=== PATIENT | female | born 1990 | race Caucasian/White ===

== ENCOUNTER 2017-07-21 13:45 | Emergency (ER) | payer BC ==
[2017-07-21 16:03] LABS: ABS Basophils 0.1 10^3/ul (0-0.2); ABS Eosinophils 0 10^3/ul (0-0.6); ABS Lymphocytes 1.5 10^3/ul (1.0-4.8); ABS Monocytes 0.3 10^3/ul (0-0.8); ABS Neutrophils 8.8 10^3/ul (1.5-7.7); ABS Nucleated RBC 0 10^3/ul; Eosinophil % 0 % (0-6); Hematocrit 35 % (35-47); Hemoglobin 11.5 g/dl (12.0-16.0); Lymphocyte % 13.9 % (25-47); Mean Corpuscular HGB Conc 33 g/dl (31-36); Mean Corpuscular Hemoglobin 26 pg (27-31); Mean Corpuscular Volume 81 fL (80-97); Mean Platelet Volume 9 um3 (7.4-10.4); Nucleated Red Blood Cells % 0; Platelet Count 267 10^3/ul (150-450); Red Blood Count 4.38 10^6/ul (4.0-5.4); Red Cell Distribution Width 16 % (10.5-15); White Blood Count 10.7 10^3/ul (3.5-10.8)
[2017-07-21 16:18] LABS: EGFR Non-African American 109.1 (>60)
[2017-07-21] MEDS ORDERED: Ketorolac INJ* 60 MG/2 ML VIAL IM ONE (16:36)
--- NOTE | 2017-07-21 18:36 | RAD ---
INDICATION: Right adnexal pain. COMPARISON: There are no prior studies available for comparison. TECHNIQUE: Multiple real-time transvaginal images of the pelvis were obtained. FINDINGS: The uterus is normal in size, shape and echogenicity. The uterus measured 8.7 x 4.6 x 5.2 cm. The endometrial echo is slightly thickened measuring 1.7 cm in thickness. There is an IUD present which is abnormally low in position centered in the endocervical canal. The right ovary measured 5.4 x 2.7 x 3.6 cm. The left ovary measured 3.4 x 1.5 x 3.1 cm. There is vascular flow within both ovaries. There is a complex right ovarian cyst measuring 1.9 x 1.3 x 2.1 cm possibly representing an involuting follicular cyst. There is a complex structure adjacent to the right ovary measuring 3.4 x 1.9 cm in size possibly representing a prominent fallopian tube less likely a mass. There is a small a moderate amount of free intraperineal fluid. The results of this exam were called to the referring clinician. IMPRESSION: 1. COMPLEX STRUCTURE ADJACENT TO THE RIGHT OVARY POSSIBLY REPRESENTING A PROMINENT FALLOPIAN TUBE LESS LIKELY A MASS OR ECTOPIC . RECOMMEND CORRELATION WITH A TEST. 2. IUD ABNORMALLY LOW IN POSITION. 3. 2.1 CM COMPLEX RIGHT OVARIAN CYST SUGGESTIVE OF AN INVOLUTING FOLLICULAR CYST. 4. SMALL TO MODERATE AMOUNT OF FREE INTRAPERITONEAL FLUID.
--- NOTE | 2017-07-21 18:41 | RAD ---
INDICATION: Right lower quadrant pain. COMPARISON: There are no prior studies available for comparison. TECHNIQUE: Multiple real-time images of the right lower quadrant were obtained using a graded compression technique. FINDINGS: No free intraperitoneal fluid or localized fluid collections are seen. The appendix was not visualized limiting the study. There are mildly prominent mesenteric lymph nodes in the right lower quadrant. The largest measures 2.1 x 0.5 x 0.9 cm IMPRESSION: 1. THE APPENDIX WAS NOT VISUALIZED LIMITING THE STUDY, CONSIDER A CT OF THE ABDOMEN AND PELVIS WITH INTRAVENOUS AND ORAL CONTRAST FOR FURTHER EVALUATION. 2. MILDLY PROMINENT MESENTERIC LYMPH NODES RAISING THE POSSIBILITY OF MESENTERIC LYMPHADENITIS.
[2017-07-21 20:25] VITALS: BP 0/0
--- NOTE | 2017-07-22 11:26 | ED ---
Gerald Tan Jennifer, scribed for Noel Membreno MD on 07/21/17 at 1637 . Abdominal Pain/Female - HPI Summary HPI Summary: The patient is a 27 year old female who presents to the ED with pain in the right lower abdomen when she woke up this morning. The patient describes that the pain radiates down her right leg and up her side and back when she sits down. It sometimes radiates to her left abdomen, but its mostly concentrated to the right side. Movement aggravates the pain. The patient describes that she ate a little food this morning and vomited a few hours later. Her abdominal pain became worse throughout the day, but she denies nausea now. She adds that began taking a proton pump inhibitor and iron supplements recently. Her last menstrual period was one month ago. - History of Current Complaint Chief Complaint: EDAbdPain Stated Complaint: ABD PAIN Time Seen by Provider: 07/21/17 16:10 Hx Obtained From: Patient Onset/Duration: Sudden Onset, Lasting Hours - Began this morning, Still Present Timing: Constant Severity Initially: Moderate Severity Currently: Moderate Pain Intensity: 6 Pain Scale Used: 0-10 Numeric Location: Discrete At: RLQ Radiates: Yes Radiates to: Back, Other - Right leg Aggravating Factor(s): Movement Alleviating Factor(s): Nothing Associated Signs and Symptoms: Positive: Other: - Vomiting. Negative: Nausea Allergies/Adverse Reactions: Allergies Allergy/AdvReac Type Severity Reaction Status Date / Time MS Penicillins [PCN] Allergy Rash Verified 07/21/17 14:21 PMH/Surg Hx/FS Hx/Imm Hx Endocrine/Hematology History: Denies: Hx Diabetes Cardiovascular History: Denies: Hx Hypertension Infectious Disease History: No Infectious Disease History: Denies: Traveled Outside the [place] in Last 30 Days - Family History Known Family History: Negative: Hypertension, Diabetes - Social History Smoking Status (MU): Never Smoked Tobacco Review of Systems Negative: Cough Positive: Abdominal Pain, Vomiting. Negative: Nausea All Other Systems Reviewed And Are Negative: Yes Physical Exam - Summary Physical Exam Summary: Appearance: The patient is well-nourished in no acute distress and in no acute pain. Skin: The skin is warm and dry and skin color reflects adequate perfusion. HEENT: ~The head is normocephalic and atraumatic. The pupils are equal and reactive. The conjunctivae are clear and without drainage. ~Nares are patent and without drainage. ~Mouth reveals moist mucous membranes and the throat is without erythema and exudate. ~The external ears are intact. The ear canals are patent and without drainage. The tympanic membranes are intact. Neck: the neck is supple with full range of motion and non-tender. There are no carotid bruits. ~There is no neck vein distension. Respiratory: Chest is non-tender. ~Lungs are clear to auscultation and breath sounds are symmetrical and equal. Cardiovascular: Heart is regular rate and rhythm. ~There is no murmur or rub auscultated. ~~There is no peripheral edema and pulses are symmetrical and equal. Abdomen: The abdomen is tender in the RLQ. She has a mild rovsing sign. Musculoskeletal: There is no back tenderness noted. ~Extremities are non-tender with full range of motion. ~There is good capillary refill. ~There is no peripheral edema or calf tenderness elicited. Neurological: Patient is alert and oriented to person, place and time. ~The patient has symmetrical motor strength in all four extremities. ~Cranial nerves are grossly intact. Deep tendon reflexes are symmetrical and equal in all four extremities. Psychiatric: The patient has an appropriate affect and does not exhibit any anxiety or depression. Triage Information Reviewed: Yes Vital Signs On Initial Exam: Initial Vitals Temp Pulse Resp BP Pulse Ox 99.2 F 94 18 135/72 100 07/21/17 14:10 07/21/17 14:10 07/21/17 14:10 07/21/17 14:10 07/21/17 14:10 Vital Signs Reviewed: Yes Diagnostics - Vital Signs Vital Signs Temp Pulse Resp BP Pulse Ox 07/21/17 14:10 99.2 F 94 18 135/72 100 - Laboratory Lab Results: Lab Results 07/21/17 07/21/17 07/21/17 Range/Units 15:52 15:52 15:52 WBC 10.7 (3.5-10.8) 10^3/ul RBC 4.38 (4.0-5.4) 10^6/ul Hgb 11.5 L (12.0-16.0) g/dl Hct 35 (35-47) % MCV 81 (80-97) fL MCH 26 L (27-31) pg MCHC 33 (31-36) g/dl RDW 16 H (10.5-15) % Plt Count 267 (150-450) 10^3/ul MPV 9 (7.4-10.4) um3 Neut % (Auto) 82.6 (38-83) % Lymph % (Auto) 13.9 L (25-47) % [place] % (Auto) 3.0 (1-9) % Eos % (Auto) 0 (0-6) % Baso % (Auto) 0.5 (0-2) % Absolute Neuts (auto) 8.8 H (1.5-7.7) 10^3/ul Absolute Lymphs (auto) 1.5 (1.0-4.8) 10^3/ul Absolute Monos (auto) 0.3 (0-0.8) 10^3/ul Absolute Eos (auto) 0 (0-0.6) 10^3/ul Absolute Basos (auto) 0.1 (0-0.2) 10^3/ul Absolute Nucleated RBC 0 10^3/ul Nucleated RBC % 0 Sodium 135 (133-145) mmol/L Potassium 3.7 (3.5-5.0) mmol/L Chloride 106 (101-111) mmol/L Carbon Dioxide 21 L (22-32) mmol/L Anion Gap 8 (2-11) mmol/L BUN 10 (6-24) mg/dL Creatinine 0.66 (0.51-0.95) mg/dL Est GFR ( Amer) 140.3 (>60) Est GFR (Non-Af Amer) 109.1 (>60) BUN/Creatinine Ratio 15.2 (8-20) Glucose 97 (70-100) mg/dL Lactic Acid 0.8 (0.5-2.0) mmol/L Calcium 9.3 (8.6-10.3) mg/dL Total Bilirubin 0.40 (0.2-1.0) mg/dL AST 12 L (13-39) U/L ALT 8 (7-52) U/L Alkaline Phosphatase 39 (34-104) U/L C-Reactive Protein < 1.00 (< 5.00) mg/L Total Protein 7.4 (6.4-8.9) g/dL Albumin 4.3 (3.2-5.2) g/dL Globulin 3.1 (2-4) g/dL Albumin/Globulin Ratio 1.4 (1-3) Lipase < 10 L (11.0-82.0) U/L Result Diagrams: 07/21/17 15:52 07/21/17 15:52 Lab Statement: Any lab studies that have been ordered have been reviewed, and results considered in the medical decision making process. - Additional Comments Diagnostic Additional Comments: Transvaginal Ultrasound taken at 16:35. IMPRESSION: 1. COMPLEX STRUCTURE ADJACENT TO THE RIGHT OVARY POSSIBLY REPRESENTING A PROMINENT FALLOPIAN TUBE LESS LIKELY A MASS OR ECTOPIC . RECOMMEND CORRELATION WITH A TEST. 2. IUD ABNORMALLY LOW IN POSITION. 3. 2.1 CM COMPLEX RIGHT OVARIAN CYST SUGGESTIVE OF AN INVOLUTING FOLLICULAR CYST. 4. SMALL TO MODERATE AMOUNT OF FREE INTRAPERITONEAL FLUID. Dr. Membreno has reviewed this report. Ultrasound of the appendix taken at 1838. IMPRESSION: 1. THE APPENDIX WAS NOT VISUALIZED LIMITING THE STUDY, CONSIDER A CT OF THE ABDOMEN AND PELVIS WITH INTRAVENOUS AND ORAL CONTRAST FOR FURTHER EVALUATION. 2. MILDLY PROMINENT MESENTERIC LYMPH NODES RAISING THE POSSIBILITY OF MESENTERIC LYMPHADENITIS. ED physician has reviewed these radiology reports. Re-Evaluation - Re-Evaluation First Eval Re-Evaluation Time: 19:45 Comment: Discussed discharge plan. Abdominal Pain Fem Course/Dx - Course Course Of Treatment: Ms. Forbes presented with RLQ pain and decreased appetite starting this AM. I was concerned about an appendicitis or a DELIVERY MANAGER problem such as torsion and obtained U/S's as well as labs. Her labs were WNL and the U/S was unable to visualize her appendix but did show some lymphadenopathy. She also was found to have her IUD low in the cervix and a possible involuting cyst. There was a question of a finding next to her ovary which could be ectopic but her pregancy test was negative. With her labs normal and her U/S negative for inflamation in the area of the appendix, I think the likelihood of an appendicitis is low and this is more likely mesenteric adenitis. We spoke about CT scan but I think the risk is greater than the benefit at this time. I recommended close F/U. She didn't get a lot of relief from toradol and I prescribed tramadol for her comfort. - Diagnoses Differential Diagnosis: Positive: Other - mesenteric adenitis Provider Diagnoses: Mesenteric adenitis Discharge - Discharge Plan Condition: Stable Disposition: HOME Prescriptions: traMADol TAB* [Ultram*] 50 mg PO Q6HR PRN #20 tab MDD 4 PRN Reason: Pain Patient Education Materials: Mesenteric Adenitis (ED) Referrals: Leslie Dunn [facility]LA[facility]IPER [Primary Care Provider] - (Follow up with your PCP in 1-2 days if not improved.) Additional Instructions: Follow up with your PCP in 1-2 days if your symptoms do not improve. The documentation as recorded by the Gerald young Jennifer accurately reflects the service I personally performed and the decisions made by me, Noel Membreno MD.
== END 2017-07-21 20:19 | disposition home or self-care (01) ==
LOC: ED 13:45
DX: I88.0 Nonspecific mesenteric lymphadenitis (principal); N83.201 Unspecified ovarian cyst, right side; T83.32XA Displacement of intrauterine contraceptive device, initial encounter; Z88.0 Allergy status to penicillin
CPT/HCPCS: 36415; 76705; 76830; 80053; 83605; 83690; 84702; 85025; 86140; 87040; 96372; 99283; J1885